=== PATIENT | male | born 1950 | race Caucasian/White ===

== ENCOUNTER 2022-11-14 07:08 | Outpatient (CLI) | payer BC ==
[2022-11-14 07:44] LABS: HCT - HEMATOCRIT 44.4 % (42.0-52.0); HGB - HEMOGLOBIN 14.4 g/dL (14.0-18.0); MEAN CORPUSCULAR HEMOGLOBIN 30.8 pg (27.0-31.0); MEAN CORPUSCULAR HGB CONC 32.4 g/dL (32.0-36.0); MEAN CORPUSCULAR VOLUME 95.1 fL (80.0-94.0); MEAN PLATELET VOLUME 9.8 fL (7.4-11.4); RED BLOOD COUNT 4.67 10^6/uL (4.70-6.10); RED CELL DISTRIBUTION WIDTH 13.4 % (12.0-15.0); WHITE BLOOD COUNT 6.6 x10^3/uL (4.8-10.8)
[2022-11-14 07:48] LABS: BILIRUBIN,URINE NEGATIVE (NEGATIVE); GLUCOSE, URINE (UA) NEGATIVE (NEGATIVE); KETONES,URINE (UA) NEGATIVE (NEGATIVE); LEUKOCYTE ESTERASE, URINE NEGATIVE (NEGATIVE); NITRITE,URINE NEGATIVE (NEGATIVE); OCCULT BLOOD,URINE NEGATIVE (NEGATIVE); PH,URINE 6.5 PH (5.0-7.5); PROTEIN,URINE NEGATIVE (NEGATIVE); UROBILINOGEN,URINE 0.2 (NORMAL) E.U./dL (NORMAL)
[2022-11-14 07:51] LABS: CREATININE 1.5 mg/dL (0.6-1.3); POTASSIUM 4.3 mmol/L (3.5-4.5)
[2022-11-14 07:51] LABS: CLARITY,URINE CLEAR (CLEAR)
[2022-11-14 07:56] LABS: CREATININE,URINE 74.4 mg/dL; PROTEIN/CREATININE RATIO,URINE 0.1 (<=0.2)
[2022-11-14 08:00] LABS: RBC,URINE 0-5 /HPF (0-5); WBC,URINE 0-3 /HPF (0-3)
[2022-11-14 08:01] LABS: BACTERIA,URINE Rare /HPF (None Seen); SQUAMOUS EPITHELIAL CELL,UR NONE SEEN (<= Few)
== END 2022-11-14 07:09 | disposition home or self-care (01) ==
LOC: LAB 07:08
DX: N18.31 Chronic kidney disease, stage 3a (principal)
CPT/HCPCS: 36415; 80048; 81001; 82570; 83970; 84100; 84156; 85027